=== PATIENT | female | born 1965 | race Two or more races ===

== ENCOUNTER 2016-09-21 03:16 | Emergency (ER) | payer OTHER ==
[2016-09-21] MEDS ORDERED: ALBUTEROL/IPRATROPIUM 2.5/0.5 MG 3 ML/EACH DOSE ONE ×2 (03:22→03:57)
[2016-09-21] MEDS ORDERED: PREDNISONE 20 MG TABLET ONE (03:58)
--- NOTE | 2016-09-21 07:44 | RAD ---
History: Cough for one month. Comparison: None. Technique: 2 views Findings: The soft tissue and bony structures are unremarkable. The heart size is appropriate. No infiltrate, effusion or pneumothorax is observed. The hilar and mediastinal structures are normal. Impression: 1. A negative 2 view chest
== END 2016-09-21 04:40 | disposition home or self-care (01) ==
LOC: ED 03:16
DX: R05 Cough (principal); R06.02 Shortness of breath
CPT/HCPCS: 71020; 87804; 94640 ×2; 99283 ×2; 93005; J7512